=== PATIENT | female | born 1940 | race Caucasian/White ===

== ENCOUNTER 2018-10-09 20:17 | Emergency (ER) | payer OTHER ==
[~2018-10-09] VITALS: Ht 144.8 cm; Wt 45.4 kg
[~2018-10-09 20:17] MED LIST: ASPI-1205 PO; ATEN25TA7 PO; FLUO40CA6 PO; KEP500 PO; LOVA40TA4 PO; TOP100 PO
[2018-10-09 20:20] VITALS: BP 152/78
--- NOTE | 2018-10-09 20:23 | NUR ---
TO LOBBY A/W BED VIA WHEELCHAIR
--- NOTE | 2018-10-09 20:41 | NUR ---
PT BROUGHT TO BED 3 VIA WHEELCHAIR
--- NOTE | 2018-10-09 20:45 | NUR ---
78 Y FEMALE BIB DAUGHTER IN LAW S/P FALL 40 MINUTES AGO WITH LACERATION ON HER BACK OF HEAD, SLIGHT BLEEDING AT THIS TIME. BLEEDING CONTROL. PT ALERT AND RESPONSIVE. 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 DR LINARES MADE AWARE. BED IS DOWN, LOCKED, BED RAIL X 2, SEIZURE PRECAUTION IN PLACE. PMH- DEMENTIA, SEIZURE, HTN RX- ASPIRIN, KEPPRA, TOPAMAX, FLUOXETINE, ATENOLOL, LOVASTATIN
--- NOTE | 2018-10-09 21:05 | NUR ---
EMT AT BEDSIDE FOR WOUND CARE
--- NOTE | 2018-10-09 21:07 | NUR ---
PT WOUND IRRIGATED WITH NORMAL SALINE
--- NOTE | 2018-10-09 21:09 | NUR ---
PT TAKEN TO CT VIA [facility]
--- NOTE | 2018-10-09 21:22 | NUR ---
report given to efraín grider
--- NOTE | 2018-10-09 21:30 | NUR ---
PT LAYING IN BED, DAUGHTER AT BEDSIDE. PT AOX2 (NAME, DATE), FORGETFUL WITH HX DEMENTIA, PERRLA 3MM, -FACIAL DROOP, -ARM DRIFT, SPEECH CLEAR, +2 EQUAL ALL PERIPHERAL STRENGTH. LACERATION NOTED ON POSTERIOR HEAD, BLEEDING CONTROLLED AT THIS TIME.
[2018-10-09 21:39] LABS: BASOPHILS % (AUTO) 0.4 % (0.0-2.0); EOSINOPHILS # (AUTO) 0.1 K/uL (0-0.4); EOSINOPHILS % (AUTO) 1.5 % (0.0-4.0); HEMATOCRIT 34.4 % (36-48); HEMOGLOBIN 11.2 g/dL (12.0-16.0); LYMPHOCYTES % (AUTO) 17.6 % (20.5-51.1); MEAN CORPUSCULAR HEMOGLOBIN 31 pg (27-31); MEAN CORPUSCULAR HGB CONC 33 g/dL (33-37); MEAN CORPUSCULAR VOLUME 96.3 fL (80-94); MONOCYTES # (AUTO) 0.6 K/uL (0.8-1.0); MONOCYTES % (AUTO) 10.2 % (1.7-9.3); NEUTROPHILS # (AUTO) 4.1 K/uL (1.8-7.7); NEUTROPHILS % (AUTO) 70.3 % (42.2-75.2); PLATELET COUNT (AUTO) 145 K/uL (140-450); RED BLOOD CELL COUNT(AUTO) 3.57 MIL/uL (4.20-5.40); RED CELL DISTRIBUTION WIDTH 13.9 % (11.6-13.7); WHITE BLOOD COUNT (AUTO) 5.9 K/uL (4.8-10.8)
[2018-10-09 21:56] LABS: ANION GAP 10.5 (8-16); CARBON DIOXIDE 24.7 mmol/L (21-32); CHLORIDE 108 mmol/L (98-107); CREATININE 1.2 mg/dL (0.6-1.3); GLUCOSE 122 mg/dL (74-106); POTASSIUM 4.2 mmol/L (3.5-5.1); SODIUM SERUM 139 mmol/L (136-145); UREA NITROGEN, BLOOD 28 mg/dL (7-18)
[2018-10-09 22:01] LABS: ALBUMIN 3.2 g/dL (3.4-5.0); ASPARTATE AMINOTRANSFERASE 30 U/L (15-37); TOTAL BILIRUBIN 0.2 mg/dL (0.0-1.0)
--- NOTE | 2018-10-09 22:40 | NUR ---
ASSISTED DR LINARES WITH DERMABOND APPLICATION
[2018-10-09 22:42] LABS: APPEARANCE,URINE CLEAR (CLEAR); BILIRUBIN,URINE NEGATIVE (NEGATIVE); BLOOD, URINE NEGATIVE (NEGATIVE); COLOR,URINE YELLOW (YELLOW); LEUKOCYTE ESTERASE ,URINE 1+ (NEGATIVE); NITRITE, URINE NEGATIVE (NEGATIVE); UGLUCOSE NEGATIVE (NEGATIVE)
[2018-10-09 23:01] LABS: RBC,URINE 0-5 /HPF (0-5)
[2018-10-09 23:35] VITALS: BP 141/60
--- NOTE | 2018-10-09 23:35 | NUR ---
Patient discharged with v/s stable. Written and verbal after care instructions given and explained. Patient alert, oriented and verbalized understanding of instructions. Wheel Chair Assisted with to car. All questions addressed prior to discharge. ID band removed. Patient advised to follow up with PMD.
== END 2018-10-09 23:35 | disposition home or self-care (01) ==
LOC: MED 20:17
DX: S01.01XA Laceration without foreign body of scalp, initial encounter (principal); D64.9 Anemia, unspecified; E83.52 Hypercalcemia; Z79.82 Long term (current) use of aspirin; Z79.899 Other long term (current) drug therapy; W01.0XXA Fall on same level from slipping, tripping and stumbling without subsequent striking against object, initial encounter; Y93.89 Activity, other specified; Y92.89 Other specified places as the place of occurrence of the external cause; Y99.8 Other external cause status
CPT/HCPCS: 12001; 36415; 70450; 71045; 80053; 81001; 85025; 87086; 93005; 99284; Q0092

== ENCOUNTER 2019-09-22 10:44 | Emergency (ER) | payer OTHER ==
[~2019-09-22] VITALS: Ht 157.5 cm; Wt 44.5 kg
--- NOTE | 2019-09-22 10:47 | NUR ---
PT WHEELCHAIRED TO ER BED 04
[2019-09-22 10:50] VITALS: BP 150/89
--- NOTE | 2019-09-22 11:11 | NUR ---
[facility]
--- NOTE | 2019-09-22 11:21 | NUR ---
PT BACK FROM CT SCAN.
--- NOTE | 2019-09-22 11:25 | NUR ---
c/o rt side head abrasion, bilat eye bruises s/p fall unk loc/ko, pain 0/10, pt son sts " she will not say if she has any pain. " no n/v/d, peerla. Pt awake aox3, afibrile , sce , cbs, noted bruises rt temporal , infraoccular and supraoccular area. pmhx htn, dementia, thyroid , seizure.
--- NOTE | 2019-09-22 11:28 | NUR ---
pt comfortable , awake in bed , side rails up x2 ,seizure precaution in place.
--- NOTE | 2019-09-22 11:57 | NUR ---
dr huitron at bedside evaluating pt, spoke to son to come in at bedside.
[2019-09-22 12:51] VITALS: BP 145/80
--- NOTE | 2019-09-22 12:52 | NUR ---
Patient discharged with v/s stable. Written and verbal after care instructions given and explained. Patient alert, oriented and verbalized understanding of instructions. Wheel Chair Assisted with by caregiver. All questions addressed prior to discharge. ID band removed. Patient advised to follow up with PMD. No Rx given. Patient educated on indication of medication including possible reaction and side effects. Opportunity to ask questions provided and answered.
== END 2019-09-22 12:52 | disposition home or self-care (01) ==
LOC: MED 10:44
DX: S05.10XA Contusion of eyeball and orbital tissues, unspecified eye, initial encounter (principal); R56.9 Unspecified convulsions; Z79.899 Other long term (current) drug therapy; X58.XXXA Exposure to other specified factors, initial encounter; Y93.89 Activity, other specified; Y92.89 Other specified places as the place of occurrence of the external cause; Y99.8 Other external cause status
CPT/HCPCS: 70450; 70486; 99285

== ENCOUNTER 2019-12-13 11:29 | Emergency (ER) | payer OTHER ==
[~2019-12-13] VITALS: Ht 162.6 cm; Wt 35.4 kg
--- NOTE | 2019-12-13 11:34 | NUR ---
Patient w/c assisted to bed 7.
[2019-12-13 11:37] VITALS: BP 128/74
--- NOTE | 2019-12-13 11:40 | NUR ---
Pt bib propeller tester for left wrist pain, pt tripped and landed on wrist this morning, noticable deformity to left wrist .Pt aox2 , afibrile , in wheelchair , family day care worker at bedside , sce , good steady bilateral radial pulse , no rom left wrist , noted left wrist bump. medhx: seizure, cancer, dementia
--- NOTE | 2019-12-13 11:47 | NUR ---
xray at bedside.,
--- NOTE | 2019-12-13 12:15 | NUR ---
Dr Razo at bedside examining pt
--- NOTE | 2019-12-13 12:37 | NUR ---
PLACED A LONG ARM POSTERIOR SPLINT ON LEFT SIDE. FITTED PT'S ARM WITH A SLING.
[2019-12-13 12:50] VITALS: BP 128/74
--- NOTE | 2019-12-13 12:53 | NUR ---
Patient discharged with v/s stable. Written and verbal after care instructions given and explained regarding wrist fracture . Patient alert, oriented and patient centered care specialist verbalized understanding of instructions. Wheel Chair Assisted with by caregiver. All questions addressed prior to discharge. ID band removed. Patient advised to follow up with PMD. Rx of motrin given. Patient educated on indication of medication including possible reaction and side effects. Opportunity to ask questions provided and answered.
== END 2019-12-13 12:53 | disposition home or self-care (01) ==
LOC: MED 11:29
DX: S62.102A Fracture of unspecified carpal bone, left wrist, initial encounter for closed fracture (principal); W18.39XA Other fall on same level, initial encounter; Y93.89 Activity, other specified; Y92.89 Other specified places as the place of occurrence of the external cause; Y99.8 Other external cause status; F03.90 Unspecified dementia, unspecified severity, without behavioral disturbance, psychotic disturbance, mood disturbance, and anxiety; Z85.89 Personal history of malignant neoplasm of other organs and systems; Z79.899 Other long term (current) drug therapy; Z98.890 Other specified postprocedural states
CPT/HCPCS: 29105; 73110; 99283; Q0092